=== PATIENT | male | born 1940 | race Caucasian/White ===

== ENCOUNTER → 2017-07-17 | Outpatient (CLI) | payer BC, MEDICARE ==
--- NOTE | 2017-07-17 09:27 | US ---
EXAMINATION TYPE: US duplex aorta DATE OF EXAM: 07/17/2017 COMPARISON: NONE CLINICAL HISTORY: R09.89 Other specified symptoms and signs involving. Pulsatile mass felt mid abdome n EXAM MEASUREMENTS: Abdominal Aorta: Proximal: 2.1 x 2.0cm Mid: 4.4 x 5.4cm Distal: 7.4 x 7.2cm Bifurcation: 1.5cm 1.5cm Aneurysmal process seen from mid to distal portion of aorta, possible internal thrombus seen within l argest distal portion. Largest dimension of aneurysm = 7.5cm AP dimension at distal level Dr San's office was notified of critical findings. IMPRESSION: Abdominal aortic aneurysm as discussed.
--- NOTE | 2017-07-17 09:28 | US ---
EXAMINATION TYPE: US groin LT DATE OF EXAM: 07/17/2017 COMPARISON: NONE CLINICAL HISTORY: R09.89 Other specified symptoms and signs involvin. Patient was lifting 40lb bag wh en it slipped and noticeable "pop" within left groin. Patient noticed bulge during shower and states he can push it back in. Obvious peristalsing bowel containing hernia seen. Tech was able to push bowel back down but with harry martina herniation protruded. IMPRESSION: Findings consistent with left inguinal hernia.
== END | disposition home or self-care (01) ==
LOC: RADUSWWP 08:19
PROVIDERS: ATTEND Family Medicine
DX: I71.4 Abdominal aortic aneurysm, without rupture (principal); R19.00 Intra-abdominal and pelvic swelling, mass and lump, unspecified site
CPT/HCPCS: 93979

== ENCOUNTER → 2018-05-15 | Outpatient (CLI) | payer MEDICARE ==
[2018-05-15 14:44] LABS: Basophils % (A) 1 %; Eosinophils # (A) 0.2 k/uL (0-0.7); Eosinophils % (A) 2 %; HCT 42.4 % (39.0-53.0); HGB 13.3 gm/dL (13.0-17.5); Lymphocytes # (A) 1.7 k/uL (1.0-4.8); Lymphocytes % (A) 24 %; MCH 27.3 pg (25.0-35.0); MCHC 31.4 g/dL (31.0-37.0); Mean Platelet Volume 7.7; Monocytes # (A) 0.4 k/uL (0-1.0); Monocytes % (A) 6 %; Neutrophils # (A) 4.6 k/uL (1.3-7.7); Neutrophils % (A) 66 %; Platelet Count 175 k/uL (150-450); RBC 4.87 m/uL (4.30-5.90); RDW 13.6 % (11.5-15.5); WBC 6.9 k/uL (3.8-10.6)
[2018-05-15 18:48] LABS: Erythrocyte Sedimentation Rate 29 mm/hr (0-15)
== END | disposition home or self-care (01) ==
LOC: LABWHC1 13:39
PROVIDERS: ATTEND Internal Medicine Gastroenterology
DX: K52.9 Noninfective gastroenteritis and colitis, unspecified (principal)
CPT/HCPCS: 36415; 83516; 85025; 85652; 86140

== ENCOUNTER → 2018-05-22 | Outpatient (CLI) | payer MEDICARE ==
[2018-05-22 16:46] LABS: Blood Urea Nitrogen 10 mg/dL (9-20)
--- NOTE | 2018-05-25 15:15 | CT ---
EXAMINATION TYPE: CT angio abdomen pelvis DATE OF EXAM: 05/22/2018 5:59 PM COMPARISON: Prior exam dated 07/18/2017 HISTORY: Abdominal aortic aneurysm without rupture. Follow up exam. CT DLP: 933.7 mGycm Automated exposure control for dose reduction was used. TECHNIQUE: Performed with IV Contrast, patient injected with 100 mL of Isovue 370 per CTA protocol of the abdome n and pelvis. FINDINGS: VASCULATURE: On the unenhanced images there is no evidence of intramural hematoma. Aortobiiliac endograft begins j ust above the renal arteries extending into the common iliac arteries. The [place] aortic lumen measur es up to 8.0 x 7.8 cm on series 3 image 49 appearing stable from the prior of 07/18/2017 in size. How ever, multiple serpiginous structures are seen within the [place] lumen on delayed imaging relating to a type II endoleak. These are seen below the level of the renal arteries beginning approximately 9.5 cm below the graft origin. Craniocaudal dimension the aneurysm measures 12.6 cm area A left common iliac aneurysm measures 9 mm on series 9 image 179. The visualized portions of the comm on iliac arteries and superficial femoral arteries are patent. The internal iliac arteries also appea r patent. The celiac axis, superior mesenteric artery, renal arteries, and inferior mesenteric artery appear pa tent. OTHER: There is sigmoid diverticulosis and other scattered colonic diverticula. No large or small bow el dilatation. Gallbladder surgically absent. Bibasilar subsegmental atelectasis is seen within the l elle bases. The heart is enlarged in its visualized portion with a global cardiomegaly. Artificial vis ualization of sternotomy wires and cardiac pacing wires are also seen. There is a small hiatal hernia . A fat filled left inguinal hernia is present. Prostate gland is enlarged and heterogenous containin g central zone calcifications. No gross evidence of greater than 1 cm short axis lymph node within th e abdomen or pelvis. Abdominal viscera are grossly unremarkable. Degenerative changes of the spine ar e present, overall moderate with femoral acetabular arthropathy also appearing moderate. IMPRESSION: ALTHOUGH THE ABDOMINAL AORTIC ANEURYSM IS NOT APPRECIABLY INCREASED IN SIZE FROM THE PRIOR OUTSIDE EX AMINATION OF 2017 THERE ARE TORTUOUS ENHANCING VESSELS IN THE [place] LUMEN OF THE ABDOMINAL AORTIC AN EURYSM THAT MEASURES UP TO 8 CM INDICATIVE OF A TYPE II ENDOLEAK. NO EVIDENCE OF VASCULAR OCCLUSION.
== END | disposition home or self-care (01) ==
LOC: RADCTMAIN 16:16
PROVIDERS: ATTEND Surgery Vascular Surgery
DX: I71.4 Abdominal aortic aneurysm, without rupture (principal); N28.9 Disorder of kidney and ureter, unspecified
CPT/HCPCS: 82565; 84520; 36415; 74174; Q9967

== ENCOUNTER → 2018-05-22 | Outpatient (CLI) | payer MEDICARE ==
[2018-05-22 16:49] LABS: Albumin 3.9 g/dL (3.5-5.0); Anion Gap 9 mmol/L; Blood Urea Nitrogen 9 mg/dL (9-20); Calcium 9.4 mg/dL (8.4-10.2); Carbon Dioxide 27 mmol/L (22-30); Chloride 95 mmol/L (98-107); Glucose 86 mg/dL (74-99); Phosphorus 3.7 mg/dL (2.5-4.5); Potassium 4.2 mmol/L (3.5-5.1); Sodium 131 mmol/L (137-145)
== END ==
LOC: LABWHC1 16:06
PROVIDERS: ATTEND Nurse Practitioner
DX: N28.9 Disorder of kidney and ureter, unspecified (principal)
CPT/HCPCS: 36415; 80069

== ENCOUNTER 2018-10-07 15:30 | Emergency (ER) | payer MEDICARE ==
[2018-10-07] MEDS ORDERED: MORPHINE SULFATE 4 MG/ML SYRINGE IVP STA (16:37)
--- NOTE | 2018-10-07 16:53 | ED ---
General Adult HPI - General Chief complaint: Fall Stated complaint: Fall, shoulder pain, rib pain SOB Time Seen by Provider: 10/07/18 16:27 Source: patient, RN notes reviewed, old records reviewed Mode of arrival: wheelchair Limitations: no limitations - History of Present Illness Initial comments: 78-year-old male presents for evaluation of left shoulder pain, left-sided chest pain status post fall. Patient slipped on the ice falling onto his left side. There was minor head trauma, no loss consciousness. No neck or back pain. Pain is isolated to the left shoulder, left lateral chest. Patient reported that his pain is severe, and he feels achy is having a heart attack. He has history of CAD status post CABG. He has history of abdominal aortic aneurysm status post stenting. Denies central chest pain, denies abdominal pain. Denies any other extremity injury, no hip pain, no knee or ankle pain. - Related Data Home Medications Medication Instructions Recorded Confirmed Aspirin 81 mg PO HS 11/01/15 10/07/18 Lisinopril [Zestril] 5 mg PO HS 11/01/15 10/07/18 Simvastatin [Zocor] 40 mg PO QAM 11/01/15 10/07/18 L.acidoph,Paracasei, B.lactis 1 cap PO HS 10/07/18 10/07/18 [Probiotic] Metoprolol Tartrate [Lopressor] 25 mg PO BID 10/07/18 10/07/18 Multivitamins, Thera [Multivitamin 1 tab PO DAILY 10/07/18 10/07/18 (formulary)] Ubidecarenone [Co Q-10] 100 mg PO HS 10/07/18 10/07/18 Previous Rx's Medication Instructions Recorded HYDROcodone/APAP 5-325MG [[place] 1 tab PO Q6HR PRN #12 tab 10/07/18 5-325] Ibuprofen [Motrin] 600 mg PO Q8HR PRN #24 tab 10/07/18 Allergies Allergy/AdvReac Type Severity Reaction Status Date / Time No Known Allergies Allergy Verified 10/07/18 16:12 Review of Systems ROS Statement: Those systems with pertinent positive or pertinent negative responses have been documented in the HPI. ROS Other: All systems not noted in ROS Statement are negative. Past Medical History Past Medical History: Coronary Artery Disease (CAD), Hyperlipidemia, Hypertension History of Any Multi-Drug Resistant Organisms: None Reported Past Surgical History: Cholecystectomy, Coronary Bypass/CABG, Tonsillectomy Additional Past Surgical History / Comment(s): Knee surg, took out torn cartilege Past Anesthesia/Blood Transfusion Reactions: No Reported Reaction Past Psychological History: No Psychological Hx Reported Smoking Status: Former smoker Past Alcohol Use History: None Reported Past Drug Use History: None Reported - Past Family History Father Family Medical History: No Reported History Mother Family Medical History: Myocardial Infarction ([place]) General Exam Limitations: no limitations General appearance: alert, in no apparent distress Head exam: Present: atraumatic, normocephalic Eye exam: Present: normal appearance. Absent: PERRL, EOMI ENT exam: Present: normal exam Neck exam: Present: normal inspection. Absent: tenderness, meningismus Respiratory exam: Present: normal lung sounds bilaterally, chest wall tenderness (Left lateral chest wall tenderness, no external signs of trauma). Absent: respiratory distress Cardiovascular Exam: Present: regular rate, normal rhythm GI/Abdominal exam: Present: soft. Absent: distended, tenderness, guarding, rebound Extremities exam: Present: normal inspection, normal capillary refill. Absent: pedal edema, calf tenderness Back exam: Present: normal inspection, full ROM. Absent: tenderness Neurological exam: Present: alert, oriented X3, CN II-XII intact. Absent: motor sensory deficit Psychiatric exam: Present: normal affect, normal mood Skin exam: Present: warm, dry, intact. Absent: cyanosis, diaphoretic Course Vital Signs 10/07/18 10/07/18 10/07/18 15:37 16:45 17:00 Temperature 97.8 F Pulse Rate 77 69 63 Respiratory 18 16 15 Rate Blood Pressure 181/78 162/73 162/73 O2 Sat by Pulse 97 Oximetry - Reevaluation(s) Reevaluation #1: 10/07/18 19:57 Patient resting comfortably, eager for discharge. EKG Findings - EKG Comments: EKG Findings:: EKG: Sinus rhythm, left atrial enlargement, right bundle branch block, rate of 66, [place] interval 156, QRS duration 158, QTC 490 [id number] Medical Decision Making - Medical Decision Making 78-year-old male presents for evaluation of a slip and fall on icy pavement. Complaining of left-sided rib pain and left shoulder pain. There was minor head trauma. CT of the head and neck is obtained, negative for intracranial hemorrhage or mass effect CT of the cervical spine negative for fracture or subluxation. Chest x-ray shows infiltrative atelectasis in the left lung base. Shoulder x-ray negative for any acute bony abnormalities. Patient had complained of severe pain and did receive EKG and cardiac workup. Which is unremarkable including normal CBC, normal CMP, negative troponin. Patient's son is a physician, discussed case with this family member over the telephone. Given the patient's history of aortic aneurysm he did decide to obtain CT chest and pelvis. CT shows thoracic aortic aneurysm measuring 4.3 cm, normal stent graft in the abdominal aortic aneurysm unchanged from previous CT. Shows nondisplaced sixth rib fracture. I did discuss these findings with patient's son, he will follow-up on previously noted aortic aneurysm, unsure of exact previous measurement at this time. Patient will be discharged home with incentive spirometer, pain control. Please follow up with primary care physician. - Lab Data Result diagrams: 10/07/18 16:42 10/07/18 16:42 Lab Results 10/07/18 10/07/18 10/07/18 Range/Units 16:42 16:42 16:42 WBC 8.1 (3.8-10.6) k/uL RBC 4.71 (4.30-5.90) m/uL Hgb 12.8 L (13.0-17.5) gm/dL Hct 39.8 (39.0-53.0) % MCV 84.5 (80.0-100.0) fL MCH 27.2 (25.0-35.0) pg MCHC 32.2 (31.0-37.0) g/dL RDW 13.8 (11.5-15.5) % Plt Count 182 (150-450) k/uL Neutrophils % 77 % Lymphocytes % 13 % Monocytes % 6 % Eosinophils % 2 % Basophils % 0 % Neutrophils # 6.2 (1.3-7.7) k/uL Lymphocytes # 1.1 (1.0-4.8) k/uL Monocytes # 0.5 (0-1.0) k/uL Eosinophils # 0.2 (0-0.7) k/uL Basophils # 0.0 (0-0.2) k/uL PT (9.0-12.0) sec INR (<1.2) APTT (22.0-30.0) sec Sodium 135 L (137-145) mmol/L Potassium 4.6 (3.5-5.1) mmol/L Chloride 101 (98-107) mmol/L Carbon Dioxide 29 (22-30) mmol/L Anion Gap 5 mmol/L BUN 12 (9-20) mg/dL Creatinine 0.75 (0.66-1.25) mg/dL Est GFR (CKD-EPI)AfAm >90 (>60 ml/min/1.73 sqM) Est GFR (CKD-EPI)NonAf 88 (>60 ml/min/1.73 sqM) Glucose 124 H (74-99) mg/dL Calcium 9.5 (8.4-10.2) mg/dL Magnesium 1.8 (1.6-2.3) mg/dL Total Bilirubin 0.5 (0.2-1.3) mg/dL AST 29 (17-59) U/L ALT 34 (21-72) U/L Alkaline Phosphatase 66 (38-126) U/L Total Creatine Kinase 196 H (55-170) U/L CK-MB (CK-2) 1.9 (0.0-2.4) ng/mL CK-MB (CK-2) Rel Index 1.0 Troponin I <0.012 (0.000-0.034) ng/mL Total Protein 6.2 L (6.3-8.2) g/dL Albumin 3.7 (3.5-5.0) g/dL 10/07/18 Range/Units 16:42 WBC (3.8-10.6) k/uL RBC (4.30-5.90) m/uL Hgb (13.0-17.5) gm/dL Hct (39.0-53.0) % MCV (80.0-100.0) fL MCH (25.0-35.0) pg MCHC (31.0-37.0) g/dL RDW (11.5-15.5) % Plt Count (150-450) k/uL Neutrophils % % Lymphocytes % % Monocytes % % Eosinophils % % Basophils % % Neutrophils # (1.3-7.7) k/uL Lymphocytes # (1.0-4.8) k/uL Monocytes # (0-1.0) k/uL Eosinophils # (0-0.7) k/uL Basophils # (0-0.2) k/uL PT 9.5 (9.0-12.0) sec INR 0.9 (<1.2) APTT 24.1 (22.0-30.0) sec Sodium (137-145) mmol/L Potassium (3.5-5.1) mmol/L Chloride (98-107) mmol/L Carbon Dioxide (22-30) mmol/L Anion Gap mmol/L BUN (9-20) mg/dL Creatinine (0.66-1.25) mg/dL Est GFR (CKD-EPI)AfAm (>60 ml/min/1.73 sqM) Est GFR (CKD-EPI)NonAf (>60 ml/min/1.73 sqM) Glucose (74-99) mg/dL Calcium (8.4-10.2) mg/dL Magnesium (1.6-2.3) mg/dL Total Bilirubin (0.2-1.3) mg/dL AST (17-59) U/L ALT (21-72) U/L Alkaline Phosphatase (38-126) U/L Total Creatine Kinase (55-170) U/L CK-MB (CK-2) (0.0-2.4) ng/mL CK-MB (CK-2) Rel Index Troponin I (0.000-0.034) ng/mL Total Protein (6.3-8.2) g/dL Albumin (3.5-5.0) g/dL Disposition Clinical Impression: Fall, Rib fracture, Aortic aneurysm without rupture Disposition: HOME SELF-CARE Condition: Good Instructions (If sedation given, give patient instructions): Fall Prevention for Older Adults (ED), Rib Fracture (ED) Prescriptions: HYDROcodone/APAP 5-325MG [[place] 5-325] 1 tab PO Q6HR PRN #12 tab PRN Reason: Pain Ibuprofen [Motrin] 600 mg PO Q8HR PRN #24 tab PRN Reason: Pain Is patient prescribed a controlled substance at d/c from ED?: No Referrals: Markus San DO [Primary Care Provider] - 1-2 days Time of Disposition: 20:00
[2018-10-07 17:08] LABS: Basophils % (A) 0 %; Eosinophils # (A) 0.2 k/uL (0-0.7); Eosinophils % (A) 2 %; HCT 39.8 % (39.0-53.0); HGB 12.8 gm/dL (13.0-17.5); Lymphocytes # (A) 1.1 k/uL (1.0-4.8); Lymphocytes % (A) 13 %; MCH 27.2 pg (25.0-35.0); MCHC 32.2 g/dL (31.0-37.0); MCV 84.5 fL (80.0-100.0); Mean Platelet Volume 7.2; Monocytes # (A) 0.5 k/uL (0-1.0); Monocytes % (A) 6 %; Neutrophils # (A) 6.2 k/uL (1.3-7.7); Neutrophils % (A) 77 %; Platelet Count 182 k/uL (150-450); RBC 4.71 m/uL (4.30-5.90); RDW 13.8 % (11.5-15.5); WBC 8.1 k/uL (3.8-10.6)
[2018-10-07 17:18] LABS: Albumin 3.7 g/dL (3.5-5.0); Carbon Dioxide 29 mmol/L (22-30); INR 0.9 (<1.2); Partial Thromboplastin Time 24.1 sec (22.0-30.0); Prothrombin Time 9.5 sec (9.0-12.0); Total Protein 6.2 g/dL (6.3-8.2)
[2018-10-07 17:26] LABS: Creatine Kinase 196 U/L (55-170)
[2018-10-07 17:29] LABS: ALT 34 U/L (21-72); AST 29 U/L (17-59); Alkaline Phosphatase 66 U/L (38-126); Anion Gap 5 mmol/L; Blood Urea Nitrogen 12 mg/dL (9-20); Calcium 9.5 mg/dL (8.4-10.2); Chloride 101 mmol/L (98-107); Glucose 124 mg/dL (74-99); Magnesium 1.8 mg/dL (1.6-2.3); Potassium 4.6 mmol/L (3.5-5.1); Sodium 135 mmol/L (137-145); Total Bilirubin 0.5 mg/dL (0.2-1.3)
[2018-10-07 17:40] LABS: Creatine Kinase MB 1.9 ng/mL (0.0-2.4); Troponin I <0.012 ng/mL (0.000-0.034)
--- NOTE | 2018-10-07 17:53 | CT ---
EXAMINATION TYPE: CT brain tyrese rodrigues con DATE OF EXAM: 10/07/2018 COMPARISON: 05/09/1716 CT scan of the brain HISTORY: Fall on ice today. No known head injury. CT DLP: 1425.6 mGycm Automated exposure control for dose reduction was used. TECHNIQUE: CT scan of the head and cervical spine are performed without contrast. FINDINGS: There is cerebral cortical atrophy. There is no mass effect nor midline shift. There is n o sign of intracranial hemorrhage. The calvarium is intact. There is enlargement of the ventricles. The cervical vertebra have normal alignment. There is degenerative disc space narrowing from C3 to C7 with spur formation. There is some hypertrophic multilevel facet arthropathy. The skull base is inta ct. IMPRESSION: Cerebral atrophy and mild hydrocephalus. No acute intracranial abnormality. Brain unchanged compared to old exam. Multilevel spondylotic changes in the cervical spine. No fracture seen.
--- NOTE | 2018-10-07 17:54 | XR ---
EXAMINATION TYPE: XR chest 2V DATE OF EXAM: 10/07/2018 COMPARISON: 11/01/2015 HISTORY: Fall on the ice chest pain TECHNIQUE: Frontal and lateral views of the chest are obtained. FINDINGS: There is no heart failure. Heart size is normal. There are sternal wires. There is a minim al infiltrate at the left lung base. There are chest leads. Bony thorax is intact. IMPRESSION: There is no small infiltrate in the left lower lobe compared to old exam.
--- NOTE | 2018-10-07 18:03 | XR ---
Left shoulder 3 views. History fall. Pain. Comparison none. FINDINGS: I see no fracture nor dislocation. There is mild spurring at the glenohumeral joint. There are no pat hologic calcifications at the greater tuberosity. IMPRESSION: No acute abnormality of the left shoulder. Mild osteoarthritis.
--- NOTE | 2018-10-07 19:40 | CT ---
EXAMINATION TYPE: CT ChestAbdPelvis w con DATE OF EXAM: 10/07/2018 COMPARISON: None HISTORY: Shoulder pain after fall injury CT DLP: 843.8 mGycm Automated exposure control for dose reduction was used. CONTRAST: CT scan of the chest, abdomen and pelvis is performed without Oral Contrast and with IV Contrast, pat ient injected with 100 mL of Isovue 300. FINDINGS: There is coarse interstitial density at the lung bases with subsegmental atelectasis. Heart is enlarg ed. There is no pericardial effusion. Thoracic aorta appears intact without evidence of dissection. T here is no contrast extravasation. There is aneurysm of the ascending aorta measures 4.3 cm. There ar e no hilar masses. There is no mediastinal adenopathy. There is small hiatal hernia. The remainder of the stomach appears normal. There are clips from [place] cystectomy. Liver spleen pancreas appear normal. Bile ducts are not dilated. There is no adrenal mass. The kidneys show satisfactory contrast opacification. There is no hydroneph rosis. There is no retroperitoneal adenopathy. There is a large aneurysm of the lower abdominal aorta that measures 8.2 cm. There is aortoiliac sten t. There is normal contrast opacification of the stent. I see no contrast extravasation in the abdomen. There are numerous diverticula in the sigmoid colon. There is no free fluid in the pelvis. Bladder distends smoothly. There is no inguinal hernia. There i s no mesenteric edema. There are multiple diverticula in the large bowel. There is no evidence of thi ckened appendix. The thoracic and lumbar spine appear intact. There are sternal wires. Bony pelvis is intact. There is nondisplaced fracture anterior lateral left sixth rib. The shoulder joint appears i ntact. IMPRESSION: Nondisplaced fracture left sixth rib. Patchy atelectasis at the lung bases. Cardiomegaly. Aneurysm of the ascending aorta. Large infrarenal abdominal aortic aneurysm unchanged compared to old CT scan of 05/22/2018. Moderate colonic diverticulosis without diverticulitis. No evidence of traumatic injury in the abdome n and pelvis.
[2018-10-07 20:21] VITALS: BP 162/83; PULSE 81; RESP 16; TEMP 97.2
== END 2018-10-07 20:21 | disposition home or self-care (01) ==
LOC: EC 15:30
DX: S22.32XA Fracture of one rib, left side, initial encounter for closed fracture (principal); I71.2 Thoracic aortic aneurysm, without rupture; I71.4 Abdominal aortic aneurysm, without rupture; J98.11 Atelectasis; M25.512 Pain in left shoulder; S09.90XA Unspecified injury of head, initial encounter; I25.10 Atherosclerotic heart disease of native coronary artery without angina pectoris; E78.5 Hyperlipidemia, unspecified; I10 Essential (primary) hypertension; Z95.1 Presence of aortocoronary bypass graft; Z87.891 Personal history of nicotine dependence; Z79.82 Long term (current) use of aspirin; Z79.899 Other long term (current) drug therapy; W00.0XXA Fall on same level due to ice and snow, initial encounter; Y92.89 Other specified places as the place of occurrence of the external cause
CPT/HCPCS: 36415; 93005; 80053; 82550; 82553; 83735; 84484; 85025; 85610; 85730; 73030; 71046; 72125; 70450; 71260; 74177; 99284; 96374; J2270; Q9967

== ENCOUNTER 2020-02-05 22:53 | Observation (INO) | payer MEDICARE ==
--- NOTE | 2020-02-05 23:20 | ED ---
Chest Pain HPI - General Chief Complaint: Chest Pain Stated Complaint: Chest Pain Time Seen by Provider: 02/05/20 23:03 Source: patient, family Mode of arrival: ambulatory Limitations: no limitations - History of Present Illness Initial Comments: This patient is 79-year-old man who presents to have evaluation of chest pain that started approximately 3 hours prior to his arrival here. Patient denies any exertional component. He is not able to characterize the pain well. He states that it has fully resolved and he is not having any symptoms now. He indicates the left anterior axillary area. No radiation of the pain. He denies any associated symptoms. MD Complaint: chest pain Onset/Timin -: hour(s) Onset: during rest Pain Location: left chest Pain Radiation: none Severity: mild Quality: other (Not able to characterize) Consistency: now resolved Improves With: nothing Worsens With: nothing Treatments Prior to Arrival: none - Related Data Home Medications Medication Instructions Recorded Confirmed Aspirin 81 mg PO HS 11/01/15 02/06/20 Lisinopril [Zestril] 5 mg PO HS 11/01/15 02/06/20 Simvastatin [Zocor] 40 mg PO QAM 11/01/15 02/06/20 Metoprolol Tartrate [Lopressor] 25 mg PO BID 10/07/18 02/06/20 Multivitamins, Thera [Multivitamin 1 tab PO DAILY 10/07/18 02/06/20 (formulary)] Ubidecarenone [Co Q-10] 100 mg PO HS 10/07/18 02/06/20 L.acidoph,Paracasei, B.lactis 1 cap PO DAILY 02/06/20 02/06/20 [Probiotic] Nitroglycerin Sl Tabs [Nitrostat] 0.4 mg PO DIRECTED PRN 02/06/20 02/06/20 Rivastigmine 9.5MG/24Hr Patch 1 patch TRANSDERM Q24HR 02/06/20 02/06/20 [Exelon 9.5MG/24Hr Patch] Previous Rx's Medication Instructions Recorded Famotidine [Pepcid] 20 mg PO BID #30 tablet 02/06/20 Allergies Allergy/AdvReac Type Severity Reaction Status Date / Time No Known Allergies Allergy Verified 02/05/20 22:59 Review of Systems ROS Statement: Those systems with pertinent positive or pertinent negative responses have been documented in the HPI. ROS Other: All systems not noted in ROS Statement are negative. Limitations: ROS unobtainable due to patients medical condition (Suspect mild underlying dementia) Constitutional: Denies: fever Respiratory: Reports: cough (4 days of nonproductive cough) Cardiovascular: Reports: as per HPI, chest pain Gastrointestinal: Denies: abdominal pain, vomiting, diarrhea, hematochezia Genitourinary: Denies: dysuria Musculoskeletal: Denies: back pain Skin: Denies: rash Neurological: Denies: headache, weakness EKG Findings - EKG Comments: EKG Findings:: In comparison with the previous ECG there may be mild T changes in leads 1 and aVL as well as V2. - EKG Results: EKG: interpreted by ALEX, sinus rhythm (Rate 59 bpm) EKG shows: bradycardia - Blocks, [place], Hypertrophy, ST Abn: AV and intraventricular conduction: right bundle branch block (fixed/intermittent, complete/incomplete) Past Medical History Past Medical History: Coronary Artery Disease (CAD), Hyperlipidemia, Hypertension History of Any Multi-Drug Resistant Organisms: None Reported Past Surgical History: Cholecystectomy, Coronary Bypass/CABG, Tonsillectomy Additional Past Surgical History / Comment(s): Knee surg, took out torn cartilege Past Anesthesia/Blood Transfusion Reactions: No Reported Reaction Past Psychological History: No Psychological Hx Reported Smoking Status: Former smoker Past Alcohol Use History: Daily Past Drug Use History: None Reported - Past Family History Father Family Medical History: No Reported History Mother Family Medical History: Myocardial Infarction ([place]) General Exam Limitations: no limitations General appearance: alert, in no apparent distress Head exam: Present: atraumatic, normocephalic Eye exam: Present: normal appearance. Absent: scleral icterus, conjunctival injection Neck exam: Present: normal inspection Respiratory exam: Present: normal lung sounds bilaterally. Absent: respiratory distress, wheezes, rales, rhonchi, stridor, chest wall tenderness, accessory muscle use, decreased breath sounds Cardiovascular Exam: Present: regular rate, normal rhythm, normal heart sounds. Absent: systolic murmur, diastolic murmur, rubs, gallop GI/Abdominal exam: Present: soft. Absent: distended, tenderness, guarding, rebound, rigid, mass Extremities exam: Present: normal inspection, normal capillary refill. Absent: pedal edema, calf tenderness Back exam: Present: normal inspection. Absent: CVA tenderness (R), CVA tenderness (L), vertebral tenderness Neurological exam: Present: alert Skin exam: Present: warm, dry, intact, normal color. Absent: rash Course Vital Signs 02/05/20 02/05/20 02/06/20 22:55 23:30 00:00 Temperature 97.4 F L Pulse Rate 67 58 L 53 L Respiratory 20 13 14 Rate Blood Pressure 134/69 137/61 124/52 O2 Sat by Pulse 98 99 99 Oximetry - Reevaluation(s) Reevaluation #1: 02/06/20 00:24 At the patient's request I did discuss the case with the patient's son over the phone. Critical Care Time Critical Care Time: Yes (35 minutes) Disposition Clinical Impression: Chest pain Disposition: ADMITTED IP TO THIS HOSP Condition: Fair Is patient prescribed a controlled substance at d/c from ED?: No
[2020-02-05 23:33] LABS: Basophils % (A) 1 %; Eosinophils # (A) 0.4 k/uL (0-0.7); Eosinophils % (A) 5 %; HCT 36.2 % (39.0-53.0); HGB 11.6 gm/dL (13.0-17.5); Lymphocytes # (A) 1.9 k/uL (1.0-4.8); Lymphocytes % (A) 24 %; MCH 26.7 pg (25.0-35.0); MCHC 32.2 g/dL (31.0-37.0); MCV 83.2 fL (80.0-100.0); Mean Platelet Volume 8.4; Monocytes # (A) 0.6 k/uL (0-1.0); Monocytes % (A) 7 %; Neutrophils # (A) 4.9 k/uL (1.3-7.7); Neutrophils % (A) 62 %; Platelet Count 161 k/uL (150-450); RBC 4.36 m/uL (4.30-5.90); RDW 14.1 % (11.5-15.5)
[2020-02-05 23:41] LABS: ALT 17 U/L (4-49); AST 27 U/L (17-59); African American GFR (CKD) >90 (>60 ml/min/1.73 sqM); Albumin 3.7 g/dL (3.5-5.0); Alkaline Phosphatase 58 U/L (38-126); Amylase 54 U/L (30-110); Anion Gap 8 mmol/L; Blood Urea Nitrogen 11 mg/dL (9-20); Carbon Dioxide 24 mmol/L (22-30); Chloride 98 mmol/L (98-107); Glucose 110 mg/dL (74-99); INR 0.9 (<1.2); Magnesium 1.8 mg/dL (1.6-2.3); Non-African American GFR(CKD) >90 (>60 ml/min/1.73 sqM); Partial Thromboplastin Time 23.5 sec (22.0-30.0); Potassium 4.4 mmol/L (3.5-5.1); Prothrombin Time 9.4 sec (9.0-12.0); Sodium 130 mmol/L (137-145); Total Bilirubin 0.4 mg/dL (0.2-1.3); Total Protein 6.2 g/dL (6.3-8.2)
--- NOTE | 2020-02-06 00:05 | XR ---
EXAMINATION TYPE: XR chest 2V DATE OF EXAM: 02/05/2020 COMPARISON: 10/07/2018 HISTORY: Chest pain TECHNIQUE: FINDINGS: Heart and mediastinum are normal. Lungs are clear. There are sternal wires. Diaphragm is no rmal. There is no heart failure. Bony thorax is intact. IMPRESSION: No active cardiopulmonary disease. There is clearing of the infiltrate left lower lobe co mpared to old exam.
[2020-02-06] MEDS ORDERED: NITROGLYCERIN SL TABS 0.4 MG TAB SUBLINGUAL PRN ×2 (00:20→08:44)
[2020-02-06] MEDS ORDERED: IBUPROFEN 600 MG TAB PO PRN (00:22)
[2020-02-06] MEDS ORDERED: HYDROcodone/APAP 5-325MG 1 EACH TAB PO PRN (00:22)
[2020-02-06] MEDS ORDERED: SODIUM CHLORIDE 0.9% 1,000 ML IV SCH (07:00)
--- NOTE | 2020-02-06 07:45 | P.HPIM ---
History of Present Illness 79-year-old pleasant male came in with complaints of chest pain. Patient has a significant memory difficulties with possible moderate dementia which is probably senile or Vascular dementia. Most of the history was opted from the [facility] staff last night and ER physician note his chest pain has been there for about a week and appeared to be musculoskeletal. Patient did chest pain is nonexertional not associated with food nonpleuritic. Patient EKG did not show any acute ST-T wave changes troponins are negative. Patient had a coronary artery bypass grafting in the past and patient lasted stress test in the system is an 2013. He lives with his Review of Systems REVIEW OF SYSTEMS: CONSTITUTIONAL: No fever, no malaise, no fatigue. HEENT: No recent visual problems or hearing problems. Denied any sore throat. CARDIOVASCULAR: No orthopnea, PND, no palpitations, no syncope. PULMONARY: No shortness of breath, no cough, no hemoptysis. GASTROINTESTINAL: No diarrhea, no nausea, no vomiting, no abdominal pain. NEUROLOGICAL: No headaches, no weakness, no numbness. HEMATOLOGICAL: Denies any bleeding or petechiae. GENITOURINARY: Denies any burning micturition, frequency, or urgency. MUSCULOSKELETAL/RHEUMATOLOGICAL: Denies any joint pain, swelling, or any muscle pain. ENDOCRINE: Denies any polyuria or polydipsia. The rest of the 14-point review of systems is negative. Past Medical History Past Medical History: Coronary Artery Disease (CAD), Hyperlipidemia, Hypertension History of Any Multi-Drug Resistant Organisms: None Reported Past Surgical History: Cholecystectomy, Coronary Bypass/CABG, Tonsillectomy Additional Past Surgical History / Comment(s): Knee surg, took out torn cartilege Past Anesthesia/Blood Transfusion Reactions: No Reported Reaction Past Psychological History: No Psychological Hx Reported Smoking Status: Former smoker Past Alcohol Use History: Daily Past Drug Use History: None Reported - Past Family History Father Family Medical History: No Reported History Mother Family Medical History: Myocardial Infarction (CT) Medications and Allergies Home Medications Medication Instructions Recorded Confirmed Type Aspirin 81 mg PO HS 11/01/15 10/07/18 History Lisinopril [Zestril] 5 mg PO HS 11/01/15 10/07/18 History Simvastatin [Zocor] 40 mg PO QA 11/01/15 10/07/18 History HYDROcodone/APAP 5-325MG [[place] 1 tab PO Q6HR PRN #12 tab 10/07/18 Rx 5-325] Ibuprofen [Motrin] 600 mg PO Q8HR PRN #24 tab 10/07/18 Rx L.acidoph,Paracasei, B.lactis 1 cap PO HS 10/07/18 10/07/18 History [Probiotic] Metoprolol Tartrate [Lopressor] 25 mg PO BID 10/07/18 10/07/18 History Multivitamins, Thera [Multivitamin 1 tab PO DAILY 10/07/18 10/07/18 History (formulary)] Ubidecarenone [Co Q-10] 100 mg PO HS 10/07/18 10/07/18 History Famotidine [Pepcid] 20 mg PO BID #30 tablet 02/06/20 Rx Allergies Allergy/AdvReac Type Severity Reaction Status Date / Time No Known Allergies Allergy Verified 02/05/20 22:59 Physical Exam Vitals: Vital Signs Temp Pulse Pulse Resp BP BP Pulse Ox 02/06/20 03:46 97.6 F 60 16 151/55 97 02/06/20 02:03 18 02/06/20 01:53 97.4 F L 53 L 18 132/61 100 02/06/20 00:00 53 L 14 124/52 99 02/05/20 23:30 58 L 13 137/61 99 02/05/20 22:55 97.4 F L 67 20 134/69 98 Intake and Output 02/05/20 02/06/20 02/06/20 22:59 06:59 14:59 Other: Weight 74.389 kg 78.8 kg PHYSICAL EXAMINATION: GENERAL: The patient is alert and oriented x3, not in any acute distress. Well developed, well nourished. HEENT: Pupils are round and equally reacting to light. EOMI. No scleral icterus. No conjunctival pallor. Normocephalic, atraumatic. No pharyngeal erythema. No thyromegaly. CARDIOVASCULAR: S1 and S2 present. No murmurs, rubs, or gallops. PULMONARY: Chest is clear to auscultation, no wheezing or crackles. ABDOMEN: Soft, nontender, nondistended, normoactive bowel sounds. No palpable organomegaly. MUSCULOSKELETAL: No joint swelling or deformity. EXTREMITIES: No cyanosis, clubbing, or pedal edema. NEUROLOGICAL: Gross neurological examination did not reveal any focal deficits. SKIN: No rashes. Results CBC & Chem 7: 02/05/20 23:24 02/05/20 23:24 Labs: Abnormal Lab Results - Last 24 Hours (Table) 02/05/20 02/05/20 Range/Units 23:24 23:24 Hgb 11.6 L (13.0-17.5) gm/dL Hct 36.2 L (39.0-53.0) % Sodium 130 L (137-145) mmol/L Creatinine 0.63 L (0.66-1.25) mg/dL Glucose 110 H (74-99) mg/dL Total Protein 6.2 L (6.3-8.2) g/dL Thrombosis Risk Factor Assmnt - Choose All That Apply Any of the Below Risk Factors Present?: Yes Each Risk Factor Represents 3 Points: Age 75 years or older Thrombosis Risk Factor Assessment Total Risk Factor Score: 3 Thrombosis Risk Factor Assessment Level: Moderate Risk Assessment and Plan Plan: -Chest pain: We'll rule out a concurrent syndromes cardia we will evaluate the patient patient probably will need a stress test and after that if it's clear patient will be discharged. Chest pain is probably musculoskeletal and cannot completely rule out gastric esophageal reflux disease since patient is taking ibuprofen her prescription Pepcid. -Coronary artery disease with history of CABG in the past - hypertension - hyperlipidemia
--- NOTE | 2020-02-06 07:45 | P.DS ---
Providers Date of admission: 02/06/20 00:20 Attending physician: Vern Gamboa Consults: 02/06/20 00:20 Consult Physician Routine Consulting Provider: Selene Snow Consult Reason/Comments: chest pain Do you want consulting provider notified?: Yes Primary care physician: [facility] Course: Please refer to my HPI for further details Patient Condition at Discharge: Fair Plan - Discharge Summary Discharge Rx Participant: No New Discharge Prescriptions: New Famotidine [Pepcid] 20 mg PO BID #30 tablet No Action Simvastatin [Zocor] 40 mg PO QAM Aspirin 81 mg PO HS Lisinopril [Zestril] 5 mg PO HS Multivitamins, Thera [Multivitamin (formulary)] 1 tab PO DAILY L.acidoph,Paracasei, B.lactis [Probiotic] 1 cap PO HS Ubidecarenone [Co Q-10] 100 mg PO HS Metoprolol Tartrate [Lopressor] 25 mg PO BID HYDROcodone/APAP 5-325MG [[place] 5-325] 1 tab PO Q6HR PRN #12 tab PRN Reason: Pain Ibuprofen [Motrin] 600 mg PO Q8HR PRN #24 tab PRN Reason: Pain Discharge Medication List Aspirin 81 mg PO HS 11/01/15 [History] Lisinopril [Zestril] 5 mg PO HS 11/01/15 [History] Simvastatin [Zocor] 40 mg PO QAM 11/01/15 [History] HYDROcodone/APAP 5-325MG [[place] 5-325] 1 tab PO Q6HR PRN #12 tab 10/07/18 [Rx] Ibuprofen [Motrin] 600 mg PO Q8HR PRN #24 tab 10/07/18 [Rx] L.acidoph,Paracasei, B.lactis [Probiotic] 1 cap PO HS 10/07/18 [History] Metoprolol Tartrate [Lopressor] 25 mg PO BID 10/07/18 [History] Multivitamins, Thera [Multivitamin (formulary)] 1 tab PO DAILY 10/07/18 [History] Ubidecarenone [Co Q-10] 100 mg PO HS 10/07/18 [History] Famotidine [Pepcid] 20 mg PO BID #30 tablet 02/06/20 [Rx] Follow up Appointment(s)/Referral(s): Markus San DO [Primary Care Provider] - 3 Days Patient Instructions/Handouts: Chest Pain (ED) Discharge Disposition: HOME SELF-CARE
[2020-02-06 08:00] VITALS: TEMP 97.5
[2020-02-06] MEDS ORDERED: ATORVASTATIN 80 MG TAB PO STA (08:44)
[2020-02-06] MEDS ORDERED: ALPRAZolam 0.25 MG TAB PO PRN (08:44)
[2020-02-06] MEDS ORDERED: SODIUM CHLORIDE 0.9% 1,000 ML in EMPTY BAG 1 BAG IV ONE (08:44)
[2020-02-06] MEDS ORDERED: ASPIRIN 325 MG TAB PO STA (08:44)
[2020-02-06] MEDS ORDERED: ALPRAZolam 0.5 MG TAB PO PRN (08:44)
[2020-02-06] MEDS ORDERED: ATORVASTATIN 20 MG TAB PO STA (08:48)
[2020-02-06] MEDS ORDERED: MULTIVITAMINS, THERA 1 EACH TAB PO SCH (09:00)
[2020-02-06] MEDS ORDERED: PANTOPRAZOLE 40 MG/10 ML VIAL IVP SCH (09:00)
[2020-02-06] MEDS ORDERED: METOPROLOL TARTRATE 25 MG TAB PO SCH (09:00)
[2020-02-06] MEDS ORDERED: ATORVASTATIN 20 MG TAB PO SCH (09:00)
[2020-02-06] MEDS ORDERED: SODIUM CHLORIDE 0.9% 1,000 ML IV ONE (11:59)
--- NOTE | 2020-02-06 12:00 | CONS ---
CONSULTATION Mr. Story is a 79-year-old male who is followed by Dr. Yakelin Snow, has a known history of coronary artery bypass grafting, abdominal aortic aneurysm, history of hypertension, hyperlipidemia, who presents with symptoms of chest discomfort. The patient has underwent coronary bypass grafting in 2006 where he received a DIANA to LAD, saphenous vein graft to diagonal branch, radial graft to the obtuse marginal branch and saphenous vein graft to the PDA. He had an episode of chest discomfort yesterday that occurred at rest, not associated with any physical activity. He did not feel significantly dyspneic. His physical activity is stable. He denies any dizziness or palpitation. He denies any syncope. No PND or orthopnea. He has underwent a stress test recently that revealed a fixed inferior wall defect with questionable ischemia in the RCA territory of prior myocardial infarction. His ejection fraction by gated SPECT images were 45%. His coronary risk factor is positive for hypertension, hyperlipidemia. He has stopped smoking over 20 years ago. MEDICATIONS: At home include simvastatin 40 mg daily, Lopressor 25 mg twice a day, Zestril 5 mg daily, aspirin once a day, Pepcid. REVIEW OF SYSTEMS: RESPIRATORY SYSTEM: He has no documented history of asthma, emphysema or bronchitis. GI SYSTEM: No recent GI bleeding. No peptic ulcer disease/ SYSTEM: No dysuria or hematuria. NERVOUS SYSTEM: No seizure. He is not quite sure if he had a stroke in the past. PHYSICAL EXAMINATION: He is a 79-year-old male, alert, oriented, in no apparent distress. Blood pressure 119/50 with a heart rate in the 60s. HEAD: Normocephalic. EYES: Sclerae nonicteric. NECK: Good upstroke, no bruit, no jugular venous distention. LUNGS: Clear to auscultation. HEART: Regular rate and rhythm, S1, S2. No S3 with systolic ejection murmur heard at the base. No diastolic murmur, no rub. ABDOMEN: Soft, nontender, positive bowel sounds, no organomegaly. EXTREMITIES: No edema, intact distal pulses. LAB DATA: Revealed troponin less than 0.012 for 2 samples. BUN and creatinine 11 and 0.63, potassium 4.4, hemoglobin of 11.6. His EKG revealed ectopic atrial rhythm with nonspecific ST-T wave changes. IMPRESSION: 1. Chest discomfort of unclear etiology, probably angina pectoris in a patient with known history of coronary artery disease and recent stress test with questionable ischemia. 2. Status post coronary artery bypass grafting. 3. Hypertension. 4. Hyperlipidemia. 5. History of abdominal aortic aneurysm. RECOMMENDATION: I will obtain echocardiogram with Doppler I have recommend proceeding with coronary angiography to assess his status and guide his treatment. I discussed his case with Dr. Snow. The procedure will be done today and depending on his results, further recommendation will be made. Thank you for this consult. Will follow with you. MMODL / IJN: [id number] /
--- NOTE | 2020-02-06 12:00 | ECHOF ---
Referral Reason:cad MEASUREMENTS -------- HEIGHT: 177.8 cm WEIGHT: 78.5 kg BP: 119/50 RVIDd: 4.2 cm (< 3.3) IVSd: 1.5 cm (0.6 - 1.1) LVIDd: 4.7 cm (3.9 - 5.3) LVPWd: 1.3 cm (0.6 - 1.1) IVSs: 1.7 cm LVIDs: 3.7 cm LVPWs: 1.9 cm LAESV Index (A-L): 53.53 ml/m Ao Diam: 3.9 cm (2.0 - 3.7) AV Cusp: 2.4 cm (1.5 - 2.6) MV EXCURSION: 23.254 mm (> 18.000) MV EF SLOPE: 142 mm/s (70 - 150) EPSS: 1.7 cm MV E Kevin: 0.55 m/s MV DecT: 252 ms MV A Kevin: 0.36 m/s MV E/A Ratio: 1.54 AR PHT: 578 ms RAP: 5.00 mmHg RVSP: 28.61 mmHg FINDINGS -------- This was a technically adequate study. The left ventricular size is normal. There is moderate concentric left ventricular hypertrophy. O verall left ventricular systolic function is low-normal with, an EF between 50 - 55 %. Mitral Doppl er inflow pattern suggests diastolic filling abnormality 8.34. Septal wall motion is delayed and co nsistent with prior cardiac surgery. Mid lateral LV wall motion is hypokinetic. The right ventricle is moderately enlarged. LA is severely dilated >40 ml/m2 The right atrium is mildly enlarged. Interatrial and interventricular septum intact. There is mild aortic valve sclerosis. There is mild aortic regurgitation. There is no evidence of aortic stenosis. Mild mitral annular calcification present. Moderate mitral regurgitation is present. Mild tricuspid regurgitation present. There is no evidence of pulmonary hypertension. The right v entricular systolic pressure, as measured by Doppler, is 28.61mmHg. There is no pulmonic regurgitation present. The aortic root size is normal. IVC Not well visulized. There is no pericardial effusion. CONCLUSIONS -------- 1. This was a technically adequate study. 2. The left ventricular size is normal. 3. There is moderate concentric left ventricular hypertrophy. 4. Mitral Doppler inflow pattern suggest diastolic filling abnormality 8.34. 5. Septal wall motion is delayed and consistent with prior cardiac surgery. 6. Mid lateral LV wall motion is hypokinetic. 7. The right ventricle is moderately enlarged. 8. LA is severely dilated >40 ml/m2 9. The right atrium is mildly enlarged. 10. Interatrial and interventricular septum intact. 11. There is mild aortic valve sclerosis. 12. There is mild aortic regurgitation. 13. There is no evidence of aortic stenosis. 14. Mild mitral annular calcification present. 15. Moderate mitral regurgitation is present. 16. Mild tricuspid regurgitation present. 17. There is no evidence of pulmonary hypertension. 18. The right ventricular systolic pressure, as measured by Doppler, is 28.61mmHg. 19. There is no pulmonic regurgitation present. 20. The aortic root size is normal. 21. IVC Not well visulized. 22. There is no pericardial effusion. BLOWER ROOM ATTENDANT: Corrina Casey RDCS
[2020-02-06 12:52] VITALS: BP 133/57; PULSE 54; RESP 18
[2020-02-06] MEDS ORDERED: NON FORMULARY DRUG (Ubidecarenone [Co Q-10] 100 MG) PO SCH (21:00)
[2020-02-06] MEDS ORDERED: LISINOPRIL 5 MG TAB PO SCH (21:00)
[2020-02-06] MEDS ORDERED: ASPIRIN 81 MG PO SCH (21:00)
[2020-02-07] MEDS ORDERED: ASPIRIN 325 MG TAB PO SCH (09:00)
[2020-02-07] MEDS ORDERED: ATORVASTATIN 40 MG TAB PO SCH (09:00)
== END 2020-02-06 14:11 | disposition home or self-care (01) ==
LOC: EC 22:53 → 3SCARD 02-06 00:20
PROVIDERS: ADMIT Hospitalist; ATTEND Hospitalist
DX: R07.9 Chest pain, unspecified (principal); R94.39 Abnormal result of other cardiovascular function study; I25.10 Atherosclerotic heart disease of native coronary artery without angina pectoris; Z87.891 Personal history of nicotine dependence; I10 Essential (primary) hypertension; E78.5 Hyperlipidemia, unspecified; I25.2 Old myocardial infarction; I71.4 Abdominal aortic aneurysm, without rupture; Z82.49 Family history of ischemic heart disease and other diseases of the circulatory system; Z90.49 Acquired absence of other specified parts of digestive tract; Z95.1 Presence of aortocoronary bypass graft; Z98.890 Other specified postprocedural states; Z79.82 Long term (current) use of aspirin; Z79.899 Other long term (current) drug therapy
CPT/HCPCS: 96374; 99285; 36415; 93005; 93306; 80053; 82150; 83690; 83735; 84484 ×2; 85025; 85610; 85730; 71046; G0378; U0003; C9113

== ENCOUNTER → 2020-03-05 | Outpatient (CLI) | payer MEDICARE ==
[2020-03-05 12:41] LABS: HCT 36.6 % (39.0-53.0); MCH 27.6 pg (25.0-35.0); MCHC 32.7 g/dL (31.0-37.0); MCV 84.5 fL (80.0-100.0); Mean Platelet Volume 8.4; Platelet Count 179 k/uL (150-450); RBC 4.34 m/uL (4.30-5.90); RDW 14.1 % (11.5-15.5)
[2020-03-05 12:50] LABS: African American GFR (CKD) >90 (>60 ml/min/1.73 sqM); Anion Gap 5 mmol/L; Blood Urea Nitrogen 7 mg/dL (9-20); Carbon Dioxide 27 mmol/L (22-30); Chloride 100 mmol/L (98-107); Non-African American GFR(CKD) >90 (>60 ml/min/1.73 sqM); Potassium 4.3 mmol/L (3.5-5.1); Sodium 132 mmol/L (137-145)
== END | disposition home or self-care (01) ==
LOC: LABPAT 11:11
PROVIDERS: ATTEND Internal Medicine Interventional Cardiology
DX: Z01.818 Encounter for other preprocedural examination (principal); I25.10 Atherosclerotic heart disease of native coronary artery without angina pectoris
CPT/HCPCS: 80051; 82565; 84520; 85027

== ENCOUNTER 2020-03-10 06:31 | Day surgery (SDC) | payer MEDICARE ==
[2020-03-09 10:39] VITALS: BMI 25.1
[~2020-03-10 06:31] MED LIST: ALPRAZolam 0.25 MG TAB PO PRN; ALPRAZolam 0.5 MG TAB PO PRN; NITROGLYCERIN SL TABS 0.4 MG TAB SUBLINGUAL PRN; SODIUM CHLORIDE 0.9% 1,000 ML in EMPTY BAG 1 BAG IV ONE
[2020-03-10] MEDS ORDERED: ASPIRIN 325 MG TAB PO ONE (07:00)
[2020-03-10 07:02] VITALS: TEMP 97.5
[2020-03-10] MEDS ORDERED: LIDOCAINE 1% INJ 10MG/ML (20 ML MDV) ONE (07:27)
[2020-03-10] MEDS ORDERED: MIDAZOLAM 2 MG/2 ML VIAL IV ONE (07:42)
[2020-03-10] MEDS ORDERED: LIDOCAINE 1% INJ 10MG/ML (20 ML MDV) SQ ONE (07:42)
[2020-03-10] MEDS ORDERED: IOPAMIDOL-370 100ML BTL INJ ONE ×2 (07:58→08:03)
[2020-03-10] MEDS ORDERED: NITROGLYCERIN SL TABS 0.4 MG TAB SUBLINGUAL ONE ×2 (08:03)
[2020-03-10] MEDS ORDERED: SODIUM CHLORIDE 0.9% 1,000 ML IV SCH (08:30)
--- NOTE | 2020-03-10 10:42 | CC ---
CARDIAC CATHETERIZATION REPORT DATE OF SERVICE: 03/10/2020 PROCEDURE: Left heart catheterization, coronary angiography, selective injection of bypass grafts and DIANA. ANESTHESIA: Moderate conscious sedation time was 28 minutes. Patient was administered Versed. Oxygen saturation, hemodynamics and EKG were monitored closely. CLINICAL INFORMATION: Mr. Timmy Story is a 79-year-old gentleman with a known history of CAD, hypertension, hyperlipidemia, and abdominal aortic aneurysm, status post stent grafting. In August 2006, he underwent aortocoronary bypass surgery with a left internal mammary artery graft to LAD, a free radial artery graft to the obtuse marginal branch of circumflex and 2 separate vein grafts, one to the diagonal and;to the PDA branch of RCA. Since then in 2013 and in 2009, I performed a cardiac catheterization. At that time, grafts were patent but there was progression of [place] disease. Because of symptoms of angina and recent hospitalization, I recommended coronary angiography. Risks, benefits, options, rationale were explained and patient was brought in for the procedure electively. PROCEDURE NOTE: Under local anesthesia and strict aseptic precautions, a 6-Kazakh introducer was placed in the right femoral artery. Under fluoroscopic guidance very carefully, a Glidewire was advanced all the way to the ascending aorta through the aortic stent graft in the iliac and distal abdominal aorta. I initially used a JL4 catheter to perform selective coronary angiography of the left coronary artery. I then used an AR2 catheter to perform selective coronary angiography of the right coronary artery and the vein graft to the PDA, vein graft to the diagonal as well as the obtuse marginal artery graft, which was a free radial artery graft. I then used a [place] catheter for the DIANA injection and a pigtail catheter to check LV pressures. LV gram was not performed. Sheath was taken out and Angio-Seal device used to secure hemostasis and he was sent to the room in a stable condition. CARDIAC CATHETERIZATION FINDINGS: The left foot end-diastolic pressure was 15-16 mmHg without any gradient across the aortic valve. CORONARY ANGIOGRAPHY FINDINGS: LEFT MAIN CORONARY ARTERY: This is a long vessel calcified and distally there is about a 70% to 75% narrowing and then the vessel bifurcates into LAD and circumflex. The left main compared to the previous study from 2013 represents a progression of disease and this is in the distal portion, calcification noted. LEFT ANTERIOR DESCENDING CORONARY ARTERY: This is a good caliber vessel. Moderate to heavy calcification extends along the anterior wall. There is competitive flow in the distal 1/3 and the tight lesion before the DIANA insertion site and the lesion is about 70%-80%. Opacified LAD has moderate disease but brisk flow. It opacifies several septal and diagonal branches. Diagonal branch has 70%-80% disease and it is a fair caliber, fair distribution diagonal branch. Distal LAD has competitive flow. LEFT POSTERIOR CIRCUMFLEX CORONARY ARTERY: Technically, a nondominant vessel, gives off what seems to be a good-sized obtuse marginal with the superior and inferior branch, superior branch is grafted. Competitive flow noted. Inferior branch is not grafted but has no significant disease. Proximal circumflex has a 60% lesion. Circumflex is moderate to heavily calcified. RIGHT CORONARY ARTERY; This vessel is totally occluded in the distal portion, heavily calcified, gives off an acute marginal branch. FREE RADIAL ARTERY GRAFT TO OBTUSE MARGINAL. This graft is widely patent in its origin, course, insertion site and opacified obtuse marginal has minor irregularities. SAPHENOUS VEIN GRAFT TO THE MAJOR DIAGONAL BRANCH: This graft is widely patent in its origin, course, insertion site, opacified diagonal has minor irregularities, no significant disease. SAPHENOUS VEIN GRAFT TO THE PDA BRANCH OF RCA. This is a good-sized graft has no significant disease and distally, it opacifies the entire PDA which is free of significant disease. LEFT INTERNAL MAMMARY ARTERY GRAFT TO THE LAD: This graft is widely patent to markedly good flow, opacifies the entire LAD has minor irregularities. no significant disease. Left Ventriculogram was not performed. FINAL IMPRESSION: This patient has a totally occluded RCA in the midportion, dominant vessel. The LAD has a tight lesion in the midportion, heavily calcified. Left main has a 70% calcified lesion. Circumflex has a 60% obtuse marginal lesion which in the superior branch is bypassed inferior branch has decent flow. The filling pressures are mildly elevated at 15 to 16 mmHg without any gradient. All the 3 vein grafts and DIANA are widely patent with good flow distally. There is significant progression of disease with the left main worsening. A diagonal branch of LAD that comes from the opacified LAD has some disease and circumflex marginal also has a 60% narrowing. RECOMMENDATIONS: Given the anatomy, I am recommending that we will pursue medical therapy. Patient will have angina but hopefully we can make sure his angina is stabilized with medical therapy and no aggressive intervention is necessary. He will avoid strenuous activity physically and will do a 30 minute walk on a daily basis. Optimization of medical therapy and pursuing medical therapy is a much better approach than doing intervention at this time, unless he has severe disabling angina. My thoughts were discussed in detail with the patient. I also spoke to his son at length. He will be discharged later on today, if he remains stable. MMVALERIE / OMEGAN: [id number] /
[2020-03-10 11:10] VITALS: RESP 16
[2020-03-10 13:01] VITALS: BP 137/63; PULSE 66
== END 2020-03-10 16:00 | disposition home or self-care (01) ==
LOC: CATHCVL 06:31
PROVIDERS: ATTEND Internal Medicine Interventional Cardiology
DX: I25.10 Atherosclerotic heart disease of native coronary artery without angina pectoris (principal); I25.82 Chronic total occlusion of coronary artery; I10 Essential (primary) hypertension; E78.2 Mixed hyperlipidemia; I71.4 Abdominal aortic aneurysm, without rupture; Z95.1 Presence of aortocoronary bypass graft; Z72.0 Tobacco use; Z79.82 Long term (current) use of aspirin; Z79.899 Other long term (current) drug therapy
CPT/HCPCS: 93459; C1769 ×4; C1760; C1894; J2250; J2001; Q9967

== ENCOUNTER → 2020-12-17 | Outpatient (CLI) | payer MEDICARE ==
[2020-12-17 10:58] LABS: African American GFR (CKD) >90 (>60 ml/min/1.73 sqM); Blood Urea Nitrogen 10 mg/dL (9-20); Non-African American GFR(CKD) 89 (>60 ml/min/1.73 sqM)
--- NOTE | 2020-12-17 12:33 | CT ---
EXAMINATION TYPE: CT angio abdomen DATE OF EXAM: 12/17/2020 COMPARISON: 10/07/2018 HISTORY: AAA CT DLP: 642.8 mGycm, Automated Exposure Control for Dose Reduction was Utilized. CONTRAST: CT scan of the abdomen and pelvis is performed with oral and with IV Contrast, patient injected with 100ml mL of Isovue 370. FINDINGS: There is a an aortic stent graft. There is abnormal attenuation within the sac compatible w ith an endoleak. Additionally the [place] aneurysm is increased significantly from the prior exam and now measures approximately 11 x 11 cm and previously measured 8 cm. Lobulated contour with peripheral calcifications are noted. The stent appears to extend into the iliac vasculature and originate above the level of the renal arteries. The stent appears to be patent. Atherosclerotic change of the femor al vasculature and iliac vasculature noted. Report called by telephone to the referring physician for 3021 at 12:08 PM. There is a small hiatal hernia. Prostate markedly enlarged. Hypertrophic and degenerative changes of the spine noted. Visualized portions of the kidneys, liver, spleen and pancreas have a normal appearance. Subcentimete r nodularity in the right adrenal gland nonspecific. Bowel gas pattern nonspecific. Diverticulosis of the colon seen. Arthropathy of the hips and degenerative change of the spine. The heart is enlarged and there are sternotomy changes. Subsegmental changes posteriorly in the right lung most typical of atelectasis. IMPRESSION: 1. Aortic stent graft with interval marked increase in size of the [place] aneurysm now measuring 11 x 11 cm and previously measuring 8 cm. Report was called to referring physician. Previously reported e ndoleak persists. 2. Prostate hypertrophy. 3. Diverticulosis. 4. Cardiomegaly.
== END | disposition home or self-care (01) ==
LOC: RADCTMAIN 10:02
PROVIDERS: ATTEND Internal Medicine Interventional Cardiology
DX: I71.4 Abdominal aortic aneurysm, without rupture (principal); T82.330D Leakage of aortic (bifurcation) graft (replacement), subsequent encounter; N40.0 Benign prostatic hyperplasia without lower urinary tract symptoms; K57.30 Diverticulosis of large intestine without perforation or abscess without bleeding; I51.7 Cardiomegaly
CPT/HCPCS: 82565; 84520; 74175; 36415; Q9967

== ENCOUNTER → 2021-02-09 | Outpatient (CLI) | payer MEDICARE ==
[2021-02-09 13:17] LABS: African American GFR (CKD) >90 (>60 ml/min/1.73 sqM); Blood Urea Nitrogen 12 mg/dL (9-20); Non-African American GFR(CKD) >90 (>60 ml/min/1.73 sqM)
--- NOTE | 2021-02-09 16:35 | CT ---
EXAMINATION TYPE: CT angio abdomen pelvis DATE OF EXAM: 02/09/2021 COMPARISON: 12/17/2020 INDICATION: Abdominal aortic aneurysm. DLP: 2029 mGycm, Automated exposure control for dose reduction was used. CONTRAST: 100 mL of Isovue 370. Study performed without Oral Contrast TECHNIQUE: Axial images were obtained from above the diaphragm to the pubic rami in the axial plane a t 5 mm thick sections. Reconstructed images are reviewed on the computer in the coronal plane. Thre e-D reconstructed images performed on separate computer by the technologist are reviewed. Pre and pos tcontrast imaging is performed. FINDINGS: Angiography: There appears to be an endovascular leak present at the inferior portion of the abdomina l aortic aneurysm, series 11 image 46 there is may be a vertebral feeding into the thrombosed aneurys m. Direct communication with the stent is not identified. Aortic stents contain contrast without obvi ous extravasation from the stent into the aneurysm. These terminate in the common iliac vessels. Clifford c vessels are patent. Limited CT sections are obtained the lung bases. The lung bases are clear. CT ABDOMEN: Liver: Normal Spleen: Normal Pancreas: Normal Adrenal glands: The adrenal glands are normal. Gallbladder: Surgically absent Kidneys: No masses are evident. No hydronephrosis is present. No cysts are present. Delayed images were obtained through the kidneys, which remain unremarkable. Aorta: Basilar calcifications within the aorta. There is a second calcified present previously. Aneur ysm measures 10.0 cm. This is stable. Inferior vena cava: Normal. CT PELVIS: Loops of bowel within the abdomen and pelvis are normal. There are diverticuli are likely present. This study is without oral contrast limiting bowel evaluation. Appendix: Not identified. No suspicious dilated tubular structure or inflammatory changes are evident . Urinary bladder: Normal. Genitourinary structures: Prostate is slightly prominent Osseous structures: No suspicious lytic or sclerotic lesions. IMPRESSIONS: 1. Endovascular leak at the distal posterior aneurysm. The contrast leaking appears smaller than the comparison. 2. Stable appearance of the abdominal aortic aneurysm size.
== END | disposition home or self-care (01) ==
LOC: RADCTMAIN 12:29
PROVIDERS: ATTEND Internal Medicine Interventional Cardiology
DX: I71.4 Abdominal aortic aneurysm, without rupture (principal); Z95.828 Presence of other vascular implants and grafts
CPT/HCPCS: 82565; 84520; 36415; 74174; Q9967

== ENCOUNTER 2021-11-01 08:08 | Emergency (ER) | payer MEDICARE ==
[2021-11-01 08:15] VITALS: RESP 18; TEMP 97.7
[2021-11-01] MEDS ORDERED: ACETAMINOPHEN TAB 500 MG TAB PO STA (09:44)
[2021-11-01] MEDS ORDERED: methocarbamoL 750 MG TAB PO STA (09:44)
--- NOTE | 2021-11-01 10:40 | CT ---
EXAMINATION TYPE: CT brain cspine wo con DATE OF EXAM: 11/01/2021 COMPARISON: 09/27/2018 HISTORY: Neck pain. Headache. CT DLP: 1351.9 mGycm Automated exposure control for dose reduction was used. TECHNIQUE: CT scan of the head and cervical spine are performed without contrast. FINDINGS: There is no acute intracranial hemorrhage, mass effect, or midline shift identified. Gene ralized moderate to severe degenerative change seen. Periventricular low attenuation is nonspecific. Intracranial atherosclerotic changes are noted.. The globes are there are changes of chronic sinusit is. Assessment spinal canal limited due to resolution and artifact. There is severe degenerative disc dis ease with complete loss of disc space at levels C3-4, C4-5, C5-6, and C6-C7 with posterior spondylosi s and facet arthropathy. Multilevel foraminal encroachment and canal stenosis. No acute fracture. The re is a grade 1 anterolisthesis of C7 relative to T1 which is retrospectively stable from prior exam. Atherosclerotic change of the carotid arteries noted. Paraseptal emphysematous changes are noted. IMPRESSION: 1. There is no acute fracture or dislocation evident in the cervical spine. 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 Multi level foraminal encroachment and canal stenosis suspected recommend follow-up MRI. 2. No acute intracranial hemorrhage, mass effect, or midline shift is seen. Degenerative and nonspeci fic white matter changes most typical of remote ischemia.
[2021-11-01] MEDS ORDERED: LIDOCAINE 5% PATCH TOPICAL STA (11:02)
--- NOTE | 2021-11-01 11:04 | ED ---
General Adult HPI - General Chief complaint: Neck Pain/Injury Stated complaint: Neck Pain Time Seen by Provider: 11/01/21 09:17 Source: patient, RN notes reviewed, old records reviewed Mode of arrival: ambulatory Limitations: no limitations - History of Present Illness Initial comments: Patient is an 81-year-old male who presents to the emergency department complaining of neck muscle strain. He states he awoke and was having bilateral neck pain with movement of his neck. He is a history of a AAA status post repair, as well as cardiac history. Not on blood thinners. No trauma. Patient presents over concern for neck pain. He states does radiate to the base of the skull. Denies any other forms headache, blurry vision, neurological deficits. Drove himself here. Patient's son did call me and wanted to convey his full medical history, however patient is fully alert and oriented at this time and also endorses that history. Patient otherwise has no acute complaints at this time. Presents over concern for possible neck injury. - Related Data Home Medications Medication Instructions Recorded Confirmed Aspirin 81 mg PO HS 11/01/15 11/01/21 lisinopriL [Zestril] 5 mg PO HS 11/01/15 11/01/21 Metoprolol Tartrate [Lopressor] 25 mg PO BID 10/07/18 11/01/21 Multivitamins, Thera [Multivitamin 1 tab PO DAILY 10/07/18 11/01/21 (formulary)] Nitroglycerin Sl Tabs [Nitrostat] 0.4 mg PO Q5M PRN 02/06/20 11/01/21 Atorvastatin Calcium [Lipitor] 40 mg PO DAILY 11/01/21 11/01/21 Rivastigmine 13.3MG/24Hr Patch 1 patch TOPICAL HS 11/01/21 11/01/21 [Exelon 13.3MG/24Hr Patch] Sildenafil Citrate [Viagra] 50 mg PO ONCE PRN 11/01/21 11/01/21 Previous Rx's Medication Instructions Recorded Lidocaine 5% Patch [Lidoderm 5% 1 patch TOPICAL DAILY PRN 7 Days 11/01/21 Patch] #7 patch Methocarbamol [Robaxin-750] 750 mg PO BID PRN 7 Days #14 tablet 11/01/21 Allergies Allergy/AdvReac Type Severity Reaction Status Date / Time No Known Allergies Allergy Verified 11/01/21 10:46 Review of Systems ROS Statement: Those systems with pertinent positive or pertinent negative responses have been documented in the HPI. Review of Systems: CONST: Denies fever EYES: Denies blurry vision ENT: Denies nasal congestion C/V: Denies Chest pain RESP: Denies shortness of breath GI: Denies abdominal pain : Denies dysuria SKIN: Denies rash. MSK: Endorses back pain NEURO: Denies headache ROS Other: All systems not noted in ROS Statement are negative. Past Medical History Past Medical History: Coronary Artery Disease (CAD), Hyperlipidemia, Hypertension History of Any Multi-Drug Resistant Organisms: None Reported Past Surgical History: Cholecystectomy, Coronary Bypass/CABG, Tonsillectomy Additional Past Surgical History / Comment(s): Knee surg, took out torn cartilege Past Anesthesia/Blood Transfusion Reactions: No Reported Reaction Past Psychological History: No Psychological Hx Reported Smoking Status: Never smoker Past Alcohol Use History: Daily Past Drug Use History: None Reported - Past Family History Father Family Medical History: No Reported History Mother Family Medical History: Myocardial Infarction ([place]) General Exam - General Exam Comments Initial Comments: General: Appears in no acute distress. HEAD: Normal with no signs of head trauma. EYES: PERRLA, EOMI, conjunctiva normal, no discharge. Pupils are 3 mm lashell aterally. ENT: Hearing grossly intact, normal oropharynx. RESPIRATORY: Clear breath sounds bilaterally. No wheezes, rales, or rhonchi. C/V: Regular rate and rhythm. S1 and S2 auscultated, no edema, peripheral pulses 2+ and intact throughout ABD: Abd is soft, nontender, nondistended. Patient does have a palpable AAA, which is states is chronic. It was already repaired. No guarding. No rebound tenderness. No distention. EXT: Normal range of motion, no obvious deformity. No midline cervical, thoracic, lumbar spine tenderness. Bilateral trapezius tenderness extending from the base of the skull to the shoulders. Likely muscle related. SKIN: No rashes or lesions observed on exposed skin. NEURO: Alert and oriented x 4. Cranial nerves II-XII intact. No focal sensory or strength deficits. GCS is 15. NIH is 0. Limitations: no limitations Course Vital Signs 11/01/21 08:09 Temperature 97.7 F Pulse Rate 65 Respiratory 18 Rate Blood Pressure 150/67 O2 Sat by Pulse 100 Oximetry Medical Decision Making - Medical Decision Making Based on the patient's presentation and physical exam, I'm concerned for likely muscle strain. Discussed with the son, we will obtain a CT brain as well as cervical spine. Patient will be given analgesia. He was in agreement this plan. CT imaging revealed no acute injuries. 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 However he has no radicular sym ptoms. Discusses the patient as well as the son Timmy over the phone. I believe it is safe for him to be discharged home with close follow-up with his PCP. They're in agreement this plan. I will provide the patient with a prescription for Robaxin, lidocaine patches. I instructed the patient to follow up with their PCP in the next 3 days. I explained that the patient should return to the emergency department if they experience any worsening symptoms. Strict return precautions were discussed with the patient. The patient expressed understanding of these instructions. I answered all questions that the patient had. The patient was discharged home in good condition with their prescriptions and follow up information. Disposition Clinical Impression: Neck muscle strain Disposition: HOME SELF-CARE Condition: Good Instructions (If sedation given, give patient instructions): Cervical Strain (ED) Prescriptions: Lidocaine 5% Patch [Lidoderm 5% Patch] 1 patch TOPICAL DAILY PRN 7 Days #7 patch PRN Reason: Pain Methocarbamol [Robaxin-750] 750 mg PO BID PRN 7 Days #14 tablet PRN Reason: Pain Is patient prescribed a controlled substance at d/c from ED?: No Referrals: Markus San DO [Primary Care Provider] - 1-2 days
[2021-11-01 11:29] VITALS: BP 142/67; PULSE 64
== END 2021-11-01 11:22 | disposition home or self-care (01) ==
LOC: EC 08:08
DX: S16.1XXA Strain of muscle, fascia and tendon at neck level, initial encounter (principal); I10 Essential (primary) hypertension; I25.2 Old myocardial infarction; X58.XXXA Exposure to other specified factors, initial encounter
CPT/HCPCS: 70450; 72125; 99283

== ENCOUNTER 2022-05-27 11:51 | Emergency (ER) | payer MEDICARE ==
[2022-05-27 12:09] VITALS: TEMP 97.6
--- NOTE | 2022-05-27 12:24 | ED ---
General Adult HPI - General Chief complaint: GI Bleed Stated complaint: Blood in stool Time Seen by Provider: 05/27/22 12:12 Source: patient, RN notes reviewed, old records reviewed Mode of arrival: ambulatory Limitations: no limitations - History of Present Illness Initial comments: 81-year-old male presenting for evaluation of black stool. Patient states that he's had some changes in his bowels recently quit and constipation and had noted some very black stool. He is currently on iron supplementation when she recently initiated for "low iron". The patient denies chest pain or dyspnea. Denies lightheadedness. Denies prior history of gastrointestinal hemorrhage. Denies anticoagulation - Related Data Home Medications Medication Instructions Recorded Confirmed Aspirin 81 mg PO HS 11/01/15 11/01/21 lisinopriL [Zestril] 5 mg PO HS 11/01/15 11/01/21 Metoprolol Tartrate [Lopressor] 25 mg PO BID 10/07/18 11/01/21 Multivitamins, Thera [Multivitamin 1 tab PO DAILY 10/07/18 11/01/21 (formulary)] Nitroglycerin Sl Tabs [Nitrostat] 0.4 mg PO Q5M PRN 02/06/20 11/01/21 Atorvastatin Calcium [Lipitor] 40 mg PO DAILY 11/01/21 11/01/21 Rivastigmine 13.3MG/24Hr Patch 1 patch TOPICAL HS 11/01/21 11/01/21 [Exelon 13.3MG/24Hr Patch] Sildenafil Citrate [Viagra] 50 mg PO ONCE PRN 11/01/21 11/01/21 Previous Rx's Medication Instructions Recorded Lidocaine 5% Patch [Lidoderm 5% 1 patch TOPICAL DAILY PRN 7 Days 11/01/21 Patch] #7 patch methocarbamoL [Robaxin-750] 750 mg PO BID PRN 7 Days #14 tablet 11/01/21 Allergies Allergy/AdvReac Type Severity Reaction Status Date / Time No Known Allergies Allergy Verified 05/27/22 12:06 Review of Systems ROS Statement: Those systems with pertinent positive or pertinent negative responses have been documented in the HPI. ROS Other: All systems not noted in ROS Statement are negative. Past Medical History Past Medical History: Coronary Artery Disease (CAD), Hyperlipidemia, Hypertension History of Any Multi-Drug Resistant Organisms: None Reported Past Surgical History: Cholecystectomy, Coronary Bypass/CABG, Tonsillectomy Additional Past Surgical History / Comment(s): Knee surg, took out torn cartilege Past Anesthesia/Blood Transfusion Reactions: No Reported Reaction Past Psychological History: No Psychological Hx Reported Smoking Status: Never smoker Past Alcohol Use History: Daily Past Drug Use History: None Reported - Past Family History Father Family Medical History: No Reported History Mother Family Medical History: Myocardial Infarction ([place]) General Exam Limitations: no limitations General appearance: alert, in no apparent distress Head exam: Present: atraumatic, normocephalic Eye exam: Present: normal appearance, PERRL ENT exam: Present: normal exam Neck exam: Present: normal inspection Respiratory exam: Absent: normal lung sounds bilaterally, respiratory distress, wheezes Cardiovascular Exam: Present: regular rate, normal rhythm GI/Abdominal exam: Present: soft. Absent: distended, tenderness, guarding Rectal exam: Present: black stool Extremities exam: Present: normal inspection, normal capillary refill Neurological exam: Present: alert, oriented X3, CN II-XII intact. Absent: motor sensory deficit Psychiatric exam: Present: normal affect, normal mood Skin exam: Present: warm, dry, intact, normal color. Absent: pallor Course Vital Signs 05/27/22 05/27/22 12:06 14:12 Temperature 97.6 F Pulse Rate 62 59 L Respiratory 16 18 Rate Blood Pressure 143/68 137/56 O2 Sat by Pulse 99 99 Oximetry Medical Decision Making - Medical Decision Making 81-year-old male who had presented with dark stool concern for GI bleed. Regarding the dark stool. He did have a sample provided which was Hemoccult negative. His hemoglobin is 11.7 which is stable from prior to her system. I did have a lengthy discussion with the patient's son Timmy who is an ER physician in [place]. He has a known aortic aneurysm with endoleak and has followed with vascular surgery for some time. We did decide on imaging in the emergency department, CT abdomin with contrast was ordered which shows an enlargement of the aortic aneurysmal sac and stent graft endoleak. These results were discussed with the patient's son who is a physician. He has had extensive endovascular repair performed prior and the patient is currently a DO NOT RESUSCITATE and wishes are that he would not undergo further intervention at this time. Given this finding and the patient's and family's wishes we did decide on discharge at this time. The patient is provided a disc of imaging study can follow with his vascular surgeon in [place]. - Lab Data Result diagrams: 05/27/22 12:50 05/27/22 12:50 Lab Results 05/27/22 05/27/22 05/27/22 Range/Units 12:50 12:50 12:50 WBC 7.8 (3.8-10.6) k/uL RBC 4.22 L (4.30-5.90) m/uL Hgb 11.7 L (13.0-17.5) gm/dL Hct 36.0 L (39.0-53.0) % MCV 85.3 (80.0-100.0) fL MCH 27.7 (25.0-35.0) pg MCHC 32.4 (31.0-37.0) g/dL RDW 14.7 (11.5-15.5) % Plt Count 190 (150-450) k/uL MPV 8.3 Neutrophils % 74 % Lymphocytes % 16 % Monocytes % 7 % Eosinophils % 2 % Basophils % 0 % Neutrophils # 5.7 (1.3-7.7) k/uL Lymphocytes # 1.2 (1.0-4.8) k/uL Monocytes # 0.5 (0-1.0) k/uL Eosinophils # 0.2 (0-0.7) k/uL Basophils # 0.0 (0-0.2) k/uL Hypochromasia Slight PT 10.2 (9.0-12.0) sec INR 0.9 (<1.2) APTT 25.2 (22.0-30.0) sec Sodium (137-145) mmol/L Potassium (3.5-5.1) mmol/L Chloride (98-107) mmol/L Carbon Dioxide (22-30) mmol/L Anion Gap mmol/L BUN (9-20) mg/dL Creatinine (0.66-1.25) mg/dL Est GFR (CKD-EPI)AfAm (>60 ml/min/1.73 sqM) Est GFR (CKD-EPI)NonAf (>60 ml/min/1.73 sqM) Glucose (74-99) mg/dL Calcium (8.4-10.2) mg/dL Total Bilirubin (0.2-1.3) mg/dL AST (17-59) U/L ALT (4-49) U/L Alkaline Phosphatase (38-126) U/L Total Protein (6.3-8.2) g/dL Albumin (3.5-5.0) g/dL Stool Occult Blood Negative (Negative) Blood Type Blood Type Recheck Bld Type Recheck Status Antibody Screen Spec Expiration Date 05/27/22 05/27/22 Range/Units 12:50 12:50 WBC (3.8-10.6) k/uL RBC (4.30-5.90) m/uL Hgb (13.0-17.5) gm/dL Hct (39.0-53.0) % MCV (80.0-100.0) fL MCH (25.0-35.0) pg MCHC (31.0-37.0) g/dL RDW (11.5-15.5) % Plt Count (150-450) k/uL MPV Neutrophils % % Lymphocytes % % Monocytes % % Eosinophils % % Basophils % % Neutrophils # (1.3-7.7) k/uL Lymphocytes # (1.0-4.8) k/uL Monocytes # (0-1.0) k/uL Eosinophils # (0-0.7) k/uL Basophils # (0-0.2) k/uL Hypochromasia PT (9.0-12.0) sec INR (<1.2) APTT (22.0-30.0) sec Sodium 130 L (137-145) mmol/L Potassium 4.6 (3.5-5.1) mmol/L Chloride 97 L (98-107) mmol/L Carbon Dioxide 27 (22-30) mmol/L Anion Gap 6 mmol/L BUN 12 (9-20) mg/dL Creatinine 0.57 L (0.66-1.25) mg/dL Est GFR (CKD-EPI)AfAm >90 (>60 ml/min/1.73 sqM) Est GFR (CKD-EPI)NonAf >90 (>60 ml/min/1.73 sqM) Glucose 97 (74-99) mg/dL Calcium 9.0 (8.4-10.2) mg/dL Total Bilirubin 1.0 (0.2-1.3) mg/dL AST 29 (17-59) U/L ALT 18 (4-49) U/L Alkaline Phosphatase 81 (38-126) U/L Total Protein 6.4 (6.3-8.2) g/dL Albumin 4.0 (3.5-5.0) g/dL Stool Occult Blood (Negative) Blood Type O Positive Blood Type Recheck O Pos Bld Type Recheck Status No Antibody Screen NEGATIVE Spec Expiration Date 05/30/20222349 Disposition Clinical Impression: Dark stools, AAA (abdominal aortic aneurysm) Disposition: HOME SELF-CARE Condition: Fair Instructions (If sedation given, give patient instructions): Iron Rich Diet (ED), Nonruptured Abdominal Aortic Aneurysm (DC) Additional Instructions: Please follow up with your vascular surgeon. Is patient prescribed a controlled substance at d/c from ED?: No Referrals: Markus San DO [Primary Care Provider] - 1-2 days
[2022-05-27 13:06] LABS: Basophils % (A) 0 %; Eosinophils # (A) 0.2 k/uL (0-0.7); Eosinophils % (A) 2 %; HGB 11.7 gm/dL (13.0-17.5); Hypochromasia Slight; Lymphocytes # (A) 1.2 k/uL (1.0-4.8); Lymphocytes % (A) 16 %; MCH 27.7 pg (25.0-35.0); MCHC 32.4 g/dL (31.0-37.0); MCV 85.3 fL (80.0-100.0); Mean Platelet Volume 8.3; Monocytes # (A) 0.5 k/uL (0-1.0); Monocytes % (A) 7 %; Neutrophils # (A) 5.7 k/uL (1.3-7.7); Neutrophils % (A) 74 %; Platelet Count 190 k/uL (150-450); RBC 4.22 m/uL (4.30-5.90); RDW 14.7 % (11.5-15.5); WBC 7.8 k/uL (3.8-10.6)
[2022-05-27 13:16] LABS: ALT 18 U/L (4-49); AST 29 U/L (17-59); African American GFR (CKD) >90 (>60 ml/min/1.73 sqM); Alkaline Phosphatase 81 U/L (38-126); Anion Gap 6 mmol/L; Blood Urea Nitrogen 12 mg/dL (9-20); Carbon Dioxide 27 mmol/L (22-30); Chloride 97 mmol/L (98-107); Glucose 97 mg/dL (74-99); Non-African American GFR(CKD) >90 (>60 ml/min/1.73 sqM); Potassium 4.6 mmol/L (3.5-5.1); Sodium 130 mmol/L (137-145); Total Protein 6.4 g/dL (6.3-8.2)
[2022-05-27 13:33] LABS: INR 0.9 (<1.2); Partial Thromboplastin Time 25.2 sec (22.0-30.0); Prothrombin Time 10.2 sec (9.0-12.0)
--- NOTE | 2022-05-27 14:09 | CT ---
EXAMINATION TYPE: CT abdomen pelvis w con DATE OF EXAM: 05/27/2022 COMPARISON: 10/07/2018 and 02/09/2021 HISTORY: Blood in Stool CT DLP: 932.5 mGycm Automated exposure control for dose reduction was used. TECHNIQUE: Helical acquisition of images was performed from the lung bases through the pelvis. CONTRAST: Performed without Oral Contrast and with IV Contrast, patient injected with 100 mL of Isovue 370. FINDINGS: Visualized lung bases are clear. There is an aortic stent graft. The [place] aorta is 11.1 cm AP by 12.4 cm transverse and has enlarged significantly in the interval where it previously measured 10.2 cm AP and 9.6 cm transverse. Along t he right posterolateral wall of the [place] aneurysm there is an outpouching of the wall which was pre sent previously but now clearly fills with contrast. There is also contrast extravasating from the en dovascular stent distally filling the [place] aneurysm sac causing is enlargement. There are surgical absence of the gallbladder. The liver, pancreas, spleen and adrenal glands are normal. The kidneys are normal without hydronephrosis. The bowel loops are normal in caliber and there is no evidence of obstruction. The osseous structures are grossly intact. 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
[2022-05-27 14:42] VITALS: BP 147/72; PULSE 60; RESP 16
== END 2022-05-27 14:45 | disposition home or self-care (01) ==
LOC: EC 11:51
DX: I71.40 Abdominal aortic aneurysm, without rupture, unspecified (principal); I25.10 Atherosclerotic heart disease of native coronary artery without angina pectoris; E78.5 Hyperlipidemia, unspecified; I10 Essential (primary) hypertension; Z79.82 Long term (current) use of aspirin
CPT/HCPCS: 99285 ×2; 36415; 86900; 86901; 80053; 85025; 85610; 85730; 86850; 82272; 74177; Q9967